=== PATIENT | male | born 1955 | race Caucasian/White ===

== ENCOUNTER 2018-01-21 08:17 | Inpatient (IN) | payer OTHER, MEDICARE ==
[2018-01-21] VITALS (7 sets, daily range): BP systolic 122–168; BP diastolic 63–74; PULSE 80–92; RESP 18–20; TEMP 97.5–98.2; O2SAT 93–98
[2018-01-21] MEDS ORDERED: METOCLOPRAMIDE HCL 10 MG/2 ML VIAL ONE (08:28)
[2018-01-21 08:37] LABS: AUTOMATED NEUTROPHIL # 3.7 TH/MM3 (1.8-7.7); BASOPHIL % 0.1 % (0.0-2.0); EOSINOPHIL # 0.1 TH/MM3 (0-0.4); EOSINOPHIL % 1.3 % (0.0-4.0); HEMATOCRIT 41.4 % (39.0-51.0); HEMOGLOBIN 13.9 GM/DL (13.0-17.0); LYMPH % 34.3 % (9.0-44.0); LYMPHOCYTE # 2.4 TH/MM3 (1.0-4.8); MEAN CELL VOLUME 87.7 FL (80.0-100.0); MEAN CORPUSCULAR HEMOGLOBIN 29.5 PG (27.0-34.0); MEAN CORPUSCULAR HGB CONC 33.6 % (32.0-36.0); MEAN PLATELET VOLUME 7.3 FL (7.0-11.0); MONO % 12.5 % (0.0-8.0); MONOCYTE # 0.9 TH/MM3 (0-0.9); NEUT % 51.8 % (16.0-70.0); PLATELET COUNT 250 TH/MM3 (150-450); RED BLOOD COUNT 4.72 MIL/MM3 (4.50-5.90); RED CELL DISTRIBUTION WIDTH 13.8 % (11.6-17.2)
[2018-01-21 08:47] LABS: PROTHROMBIN TIME - PATIENT 10.6 SEC (9.8-11.6)
[2018-01-21] MEDS ORDERED: IOHEXOL 350 MG/ML 10 ML VIAL (for RAD DIAG) IVCONTRAST ONE (08:53)
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
[2018-01-21] MEDS ORDERED: ACETAMINOPHEN/HYDROcodone 325 MG/5 MG TAB PO PRN (09:15)
[2018-01-21] MEDS ORDERED: NURSING INFORMATION XX SCH (09:15)
[2018-01-21] MEDS ORDERED: CHLORHEXIDINE GLUCONATE 2 % 1 PACK (2 CLOTHS) TOP PRN (09:15)
[2018-01-21] MEDS ORDERED: MORPHINE SULFATE 4 MG/ML INJ IV PUSH PRN (09:15)
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
[2018-01-21] MEDS: SODIUM CHLOR 0.9% 1000 ML INJ 1,000 ML IV SCH ×2 (09:38→22:47)
[2018-01-21] MEDS ORDERED: COUM5TAB PO (10:51)
[2018-01-21] MEDS ORDERED: LEVO75TA3 PO (10:51)
[2018-01-21] MEDS ORDERED: METF500T PO (10:51)
[2018-01-21] MEDS ORDERED: GLIM2TAB PO (10:51)
[2018-01-21 10:55] LABS: ALBUMIN 4.2 GM/DL (3.4-5.0); ALT (GPT) 26 U/L (12-78); AST (GOT) 23 U/L (15-37); BICARBONATE 19.5 MEQ/L (21.0-32.0); BLOOD UREA NITROGEN 14 MG/DL (7-18); CALCIUM 9.4 MG/DL (8.5-10.1); CHLORIDE 104 MEQ/L (98-107); CREATININE 0.98 MG/DL (0.60-1.30); GLOMERULAR FILTRATION RATE 66 ML/MIN (>89); GLUCOSE,RANDOM 211 MG/DL (74-106); SODIUM (NA) 136 MEQ/L (136-145)
[2018-01-21 10:56] LABS: ALKALINE PHOSPHATASE 67 U/L (45-117); TOTAL BILIRUBIN ADULT 0.5 MG/DL (0.2-1.0); TOTAL PROTEIN 8.2 GM/DL (6.4-8.2)
[2018-01-21] MEDS: INSULIN ASPART SUPPLEMENTAL SCALE SQ SCH ×3 (12:00→22:44)
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
[2018-01-21] MEDS ORDERED: DOCU1CAP39 PO (17:32)
[2018-01-21] MEDS ORDERED: MAGN30S PO (17:32)
[2018-01-21 17:52] LABS: HEMOGLOBIN A1C 8.6 % (4.3-6.0)
[2018-01-21] MEDS: DOCUSATE SODIUM 100 MG CAP PO SCH (22:56)
[2018-01-21] MEDS: MAGNESIUM HYDROXIDE SUSP 30 ML CUP PO SCH (22:56)
[2018-01-21] MEDS: ACETAMINOPHEN/HYDROcodone 325 MG/5 MG TAB PO PRN (22:56)
[2018-01-22] VITALS: BP 134/65; PULSE 81; RESP 18; TEMP 98.1; O2SAT 94
[2018-01-22] MEDS ORDERED: METF500T PO (00:43)
[2018-01-22] MEDS ORDERED: ATOR40TA16 PO (00:44)
[2018-01-22] MEDS ORDERED: OMEP20TA93 PO (00:45)
[2018-01-22] MEDS ORDERED: LEVO112T2 PO (00:45)
[2018-01-22] MEDS ORDERED: GLIM4TAB PO (00:45)
[2018-01-22] MEDS ORDERED: CILO100T PO (00:46)
[2018-01-22] MEDS ORDERED: ENAL2.5T PO (00:47)
[2018-01-22 04:00] VITALS: BP 155/79; PULSE 82; RESP 18; TEMP 97.8; O2SAT 95
[2018-01-22] MEDS: CHLORHEXIDINE GLUCONATE 2 % 1 PACK (2 CLOTHS) TOP SCH (04:00)
[2018-01-22 04:28] LABS: AUTOMATED NEUTROPHIL # 4.3 TH/MM3 (1.8-7.7); BASOPHIL % 0.3 % (0.0-2.0); EOSINOPHIL % 0.2 % (0.0-4.0); HEMATOCRIT 38.2 % (39.0-51.0); HEMOGLOBIN 13.1 GM/DL (13.0-17.0); LYMPH % 24.8 % (9.0-44.0); LYMPHOCYTE # 1.7 TH/MM3 (1.0-4.8); MEAN CELL VOLUME 86.4 FL (80.0-100.0); MEAN CORPUSCULAR HEMOGLOBIN 29.7 PG (27.0-34.0); MEAN CORPUSCULAR HGB CONC 34.4 % (32.0-36.0); MEAN PLATELET VOLUME 6.9 FL (7.0-11.0); MONO % 12.6 % (0.0-8.0); MONOCYTE # 0.9 TH/MM3 (0-0.9); NEUT % 62.1 % (16.0-70.0); PLATELET COUNT 227 TH/MM3 (150-450); RED BLOOD COUNT 4.42 MIL/MM3 (4.50-5.90); RED CELL DISTRIBUTION WIDTH 13.7 % (11.6-17.2); WHITE BLOOD COUNT 6.9 TH/MM3 (4.0-11.0)
[2018-01-22 04:36] LABS: INTERNATIONAL NORMALIZED RATIO 1.1 RATIO; PROTHROMBIN TIME - PATIENT 11.2 SEC (9.8-11.6)
[2018-01-22 04:57] LABS: BICARBONATE 19.9 MEQ/L (21.0-32.0); CALCIUM 8.7 MG/DL (8.5-10.1); CREATININE 0.77 MG/DL (0.60-1.30)
[2018-01-22] MEDS: LEVOTHYROXINE SODIUM 75 MCG TAB PO SCH (06:00)
[2018-01-22] MEDS ORDERED: MORPHINE SULFATE 4 MG/ML INJ IV PUSH PRN (07:30)
[2018-01-22] MEDS: INSULIN ASPART SUPPLEMENTAL SCALE SQ SCH ×4 (08:00→21:34)
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
[2018-01-22] MEDS: DOCUSATE SODIUM 100 MG CAP PO SCH ×2 (09:00→21:35)
[2018-01-22] MEDS: MAGNESIUM HYDROXIDE SUSP 30 ML CUP PO SCH ×2 (09:00→21:54)
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
[2018-01-22] MEDS: BACITRACIN TOP OINT 15 GM TUBE TOPICAL SCH ×2 (09:15→21:55)
[2018-01-22 09:19] VITALS: BP 168/82; PULSE 78; RESP 20; TEMP 97.9; O2SAT 95
[2018-01-22] MEDS: ACETAMINOPHEN/HYDROcodone 325 MG/5 MG TAB PO PRN ×3 (10:11→21:54)
[2018-01-22 12:30] VITALS: BP 150/72; PULSE 75; RESP 20; TEMP 98.3; O2SAT 96
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
[2018-01-22] MEDS: PANTOPRAZOLE SOD 20 MG DELAYED RELEASE TAB PO SCH (16:15)
[2018-01-22] MEDS ORDERED: DEXTROSE 50% IN WATER 50 ML VIAL(D50) IV PUSH PRN (16:15)
[2018-01-22] MEDS ORDERED: GLUCAGON 1 MG/ML VIAL OTHER PRN (16:15)
[2018-01-22] MEDS: ENALAPRIL MALEATE 2.5 MG TAB PO SCH (16:30)
[2018-01-22 16:33] VITALS: BP 165/74; PULSE 76; RESP 20; TEMP 97.8; O2SAT 93
[2018-01-22] MEDS: metFORMIN HCL 500 MG TAB PO SCH (16:51)
[2018-01-22] MEDS: GLIMEPIRIDE 2 MG TAB PO SCH (16:51)
[2018-01-22 20:00] VITALS: BP 141/73; PULSE 72; RESP 18; TEMP 98.5; O2SAT 95
[2018-01-22] MEDS ORDERED: ATORVASTATIN 40 MG TAB PO SCH (21:00)
[2018-01-22] MEDS: CILOSTAZOL 100 MG TAB PO SCH (21:47)
[2018-01-23] VITALS: BP 145/79; PULSE 75; RESP 18; TEMP 98.7; O2SAT 95
[2018-01-23 04:00] VITALS: BP 168/77; PULSE 76; RESP 18; TEMP 97.6; O2SAT 95
[2018-01-23] MEDS: CHLORHEXIDINE GLUCONATE 2 % 1 PACK (2 CLOTHS) TOP SCH (04:17)
[2018-01-23] MEDS: LEVOTHYROXINE SODIUM 75 MCG TAB PO SCH (05:20)
[2018-01-23] MEDS: ACETAMINOPHEN/HYDROcodone 325 MG/5 MG TAB PO PRN (05:24)
--- NOTE | 2018-01-23 07:38 | HHI.FF ---
Face to Face Verification Diagnosis: (1) Closed head injury (2) Nondisplaced fracture of left side of frontal bone Physical Therapy Order: Evaluate and Treat, Improve ambulation, Strength and gait training Occupational Therapy Order: Evaluate and Treat, Improve ADL, Gross motor coordination, Fine motor coordination Home Health Nursing Order: Medical education Signs/symptoms of disease process Medication education-adverse effect Nursing assessment with vital signs I have seen patient on 01/23/18. My clinical findings support the need for the requested home health care services because: Ltd mobility - disease progression Deconditioned w/ increased weakness Limited ability to care for self Need for psychosocial assistance High risk of falls I certify that my clinical findings support that this patient is homebound because: Impaired cognitive ability/safety Unsteady gait/balance Unsafe to leave home unassisted [id number] bed/chair Unable to use public transportation Cecelia Araujo Jan 23, 2018 07:37
[2018-01-23] MEDS ORDERED: WALKER WHEELS/F1 MIS (07:39)
[2018-01-23 08:00] VITALS: BP 157/67; PULSE 76; RESP 16; TEMP 97.9; O2SAT 93
[2018-01-23] MEDS: INSULIN ASPART SUPPLEMENTAL SCALE SQ SCH (08:00)
[2018-01-23] MEDS ORDERED: HYDR-3516 PO (08:43)
[2018-01-23] MEDS: MAGNESIUM HYDROXIDE SUSP 30 ML CUP PO SCH (09:00)
[2018-01-23] MEDS: CILOSTAZOL 100 MG TAB PO SCH (09:08)
[2018-01-23] MEDS: ENALAPRIL MALEATE 2.5 MG TAB PO SCH (09:08)
[2018-01-23] MEDS: GLIMEPIRIDE 2 MG TAB PO SCH (09:09)
[2018-01-23] MEDS: PANTOPRAZOLE SOD 20 MG DELAYED RELEASE TAB PO SCH (09:09)
[2018-01-23] MEDS: DOCUSATE SODIUM 100 MG CAP PO SCH (09:09)
[2018-01-23] MEDS: metFORMIN HCL 500 MG TAB PO SCH (09:09)
[2018-01-23] MEDS: BACITRACIN TOP OINT 15 GM TUBE TOPICAL SCH (09:10)
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
== END 2018-01-23 13:09 | disposition home health service (06) | DRG 87 ==
LOC: NEPI 08:17 → NEDA 08:45 → OBSVTOIN 09:14 → EDBD 09:14 → N05B 15:25
PROVIDERS: ADMIT Surgery Trauma Surgery; ATTEND Surgery Trauma Surgery
PROC: 2W32XYZ Immobilization of Neck using Other Device (ICD-10-PCS; principal; 2018-01-22)
DX: S02.0XXA Fracture of vault of skull, initial encounter for closed fracture (principal); E11.51 Type 2 diabetes mellitus with diabetic peripheral angiopathy without gangrene; S06.0X9A Concussion with loss of consciousness of unspecified duration, initial encounter; T14.8XXA Other injury of unspecified body region, initial encounter; M48.02 Spinal stenosis, cervical region; I10 Essential (primary) hypertension; H54.8 Legal blindness, as defined in USA; M50.823 Other cervical disc disorders at C6-C7 level; M50.822 Other cervical disc disorders at C5-C6 level; I25.10 Atherosclerotic heart disease of native coronary artery without angina pectoris; E86.0 Dehydration; E03.9 Hypothyroidism, unspecified; E78.5 Hyperlipidemia, unspecified; M25.78 Osteophyte, vertebrae; R20.0 Anesthesia of skin; R20.2 Paresthesia of skin; R40.2410 Glasgow coma scale score 13-15, unspecified time; Y93.55 Activity, bike riding; V13.4XXA Pedal cycle driver injured in collision with car, pick-up truck or van in traffic accident, initial encounter; Z88.6 Allergy status to analgesic agent; Z79.84 Long term (current) use of oral hypoglycemic drugs; Z79.01 Long term (current) use of anticoagulants; Z95.1 Presence of aortocoronary bypass graft; S00.81XA Abrasion of other part of head, initial encounter
CPT/HCPCS: 70450; 70486; 71045; 71260; 72125; 72141; 72170; 74177; 80048; 80053; 82948; 83036; 85025; 85610; 85730; 86850; 86900; 86901; 86920; 94150; 99285; J1815; J2765; J7030; L0120; Q9967